=== PATIENT | male | born 1980 | race African-American/Black ===

== ENCOUNTER 2018-11-30 18:38 | Emergency (ER) | payer OTHER | END 2018-11-30 19:35 | disposition other institution (70) | LOC: ED 18:38 | DX: Z02.89 Encounter for other administrative examinations (principal) ==

== ENCOUNTER 2018-11-30 18:38 | Emergency (ER) | payer SELFPAY ==
[~2018-11-30] VITALS: Ht 175.3 cm; Wt 77.1 kg
[2018-11-30 18:43] VITALS: Ht 175.3 cm; Wt 77.1 kg
[2018-11-30 19:35] VITALS: BP 116/84
== END 2018-11-30 19:35 | disposition other institution (70) ==
LOC: ED 18:38
DX: M79.672 Pain in left foot (principal)